=== PATIENT | male | born 1960 | race Caucasian/White ===

== ENCOUNTER 2018-08-27 00:09 | Day surgery (SDC) | payer OTHER ==
[~2018-08-27 00:09] MED LIST: ALBU90OI6 INH; ATOR40TA PO; CEPH500 PO; LEFL20 PO; LISI20 PO
== END 2018-08-27 23:10 | disposition home or self-care (01) ==
LOC: WOUND 00:09
DX: L03.116 Cellulitis of left lower limb (principal); R23.4 Changes in skin texture; I10 Essential (primary) hypertension; J44.9 Chronic obstructive pulmonary disease, unspecified; E78.5 Hyperlipidemia, unspecified; M19.90 Unspecified osteoarthritis, unspecified site; Z88.1 Allergy status to other antibiotic agents; Z87.891 Personal history of nicotine dependence
CPT/HCPCS: G0463

== ENCOUNTER 2018-09-04 10:25 | Day surgery (SDC) | payer OTHER | END 2018-09-04 22:55 | disposition home or self-care (01) | LOC: WOUND 10:25 | DX: R23.4 Changes in skin texture (principal); J44.9 Chronic obstructive pulmonary disease, unspecified; I10 Essential (primary) hypertension; E78.5 Hyperlipidemia, unspecified; M06.9 Rheumatoid arthritis, unspecified; F17.200 Nicotine dependence, unspecified, uncomplicated; M19.90 Unspecified osteoarthritis, unspecified site | CPT/HCPCS: G0463 ==

== ENCOUNTER 2018-09-11 10:15 | Day surgery (SDC) | payer OTHER | END 2018-09-11 22:51 | disposition home or self-care (01) | LOC: WOUND 10:15 | DX: R23.4 Changes in skin texture (principal); J44.9 Chronic obstructive pulmonary disease, unspecified; M06.9 Rheumatoid arthritis, unspecified; E78.5 Hyperlipidemia, unspecified; I10 Essential (primary) hypertension; F17.200 Nicotine dependence, unspecified, uncomplicated; M19.90 Unspecified osteoarthritis, unspecified site | CPT/HCPCS: G0463 ==

== ENCOUNTER 2018-09-18 10:12 | Day surgery (SDC) | payer OTHER | END 2018-09-18 22:42 | disposition home or self-care (01) | LOC: WOUND 10:12 | DX: S81.802A Unspecified open wound, left lower leg, initial encounter (principal); R23.4 Changes in skin texture; I10 Essential (primary) hypertension; J44.9 Chronic obstructive pulmonary disease, unspecified; E78.5 Hyperlipidemia, unspecified; F17.200 Nicotine dependence, unspecified, uncomplicated | CPT/HCPCS: G0463 ==

== ENCOUNTER 2018-09-25 10:15 | Day surgery (SDC) | payer OTHER | END 2018-09-25 22:50 | disposition home or self-care (01) | LOC: WOUND 10:15 | DX: R23.4 Changes in skin texture (principal); J44.9 Chronic obstructive pulmonary disease, unspecified; E78.5 Hyperlipidemia, unspecified; I10 Essential (primary) hypertension; M06.9 Rheumatoid arthritis, unspecified; F17.200 Nicotine dependence, unspecified, uncomplicated | CPT/HCPCS: G0463 ==

== ENCOUNTER → 2022-03-07 | Outpatient (CLI) | payer OTHER | END | disposition home or self-care (01) | LOC: LAB SHORT 11:40 → LAB 11:40 | PROVIDERS: Physician Assistant Medical | DX: E78.2 Mixed hyperlipidemia (principal); E11.42 Type 2 diabetes mellitus with diabetic polyneuropathy | CPT/HCPCS: 82043; 82570 ==

== ENCOUNTER → 2024-03-27 | Outpatient (CLI) | payer OTHER ==
[2024-03-27 12:58] LABS: Microalb/Creat Ratio UR, Rand 176.786 mg/g (0.000-30.000)
== END | disposition home or self-care (01) ==
LOC: LAB SHORT 09:40 → LAB 09:40
PROVIDERS: Physician Assistant Medical
DX: E11.42 Type 2 diabetes mellitus with diabetic polyneuropathy (principal); E11.69 Type 2 diabetes mellitus with other specified complication; E78.2 Mixed hyperlipidemia
CPT/HCPCS: 82043; 82570

== ENCOUNTER 2025-03-26 17:43 | Inpatient (IN) | payer OTHER ==
[~2025-03-26] VITALS: Ht 172.7 cm; Wt 95.2 kg
[~2025-03-26 17:43] MED LIST changes: -ALBU90OI6 INH; +ALBU90OI61 INH
[2025-03-26 18:33] LABS: BASOPHILS ABSOLUTE AUTO 0.06 K/mm3 (0.00-0.23); BASOPHILS PERCENT AUTO 1 % (0-2); EOSINOPHILS ABSOLUTE AUTO 0.34 K/mm3 (0.00-0.68); EOSINOPHILS PERCENT AUTO 4 % (0-6); Hematocrit 37.6 % (37.0-53.0); Hemoglobin 12.2 g/dL (13.5-17.5); IMMATURE GRAN ABSOLUTE AUTO 0.04 K/mm3 (0.00-0.10); IMMATURE GRAN PERCENT AUTO 0 % (0-1); LYMPHOCYTES ABSOLUTE AUTO 2.20 K/mm3 (0.84-5.20); LYMPHOCYTES PERCENT AUTO 24 % (21-46); MONOCYTES ABSOLUTE AUTO 0.60 K/mm3 (0.16-1.47); MONOCYTES PERCENT AUTO 7 % (4-13); Mean Corpuscular HGB Conc 32.4 g/dL (31.5-36.5); Mean Corpuscular Volume 97 fL (80-100); NEUTROPHILS ABSOLUTE AUTO 5.79 K/mm3 (1.96-9.15); NEUTROPHILS PERCENT AUTO 64 % (41-73); NRBC ABSOLUTE 0.00 K/mm3 (0.00-0.02); NRBC Auto 0.0 /100 WBC (0.0-0.2); Platelet Count 253 K/mm3 (150-400); RDW Coefficient Variation 12.9 % (11.7-14.2); RDW Standard Deviation 45.6 fL (35.1-46.3)
[2025-03-26 18:57] LABS: Alanine Aminotransfer (ALT/SGP 35.0 U/L (12-78); Albumin, Blood 3.4 g/dL (3.4-5.0); Albumin/Globulin Ratio 0.8 (0.8-1.8); Anion Gap 7.0 mmol/L (3-11); Aspartate Aminotrans (AST/SGOT 17.0 U/L (12-37); Bilirubin, Total 0.2 mg/dL (0.1-1.0); Blood Urea Nitrogen 12.0 mg/dL (8-24); CO2, Blood 31.0 mmol/L (21-32); Calcium, Blood 9.6 mg/dL (8.5-10.1); Chloride, Blood 100.0 mmol/L (98-108); Creatinine, Blood 0.67 mg/dL (0.60-1.20); Globulin, Blood 4.3 g/dL (2.2-4.0); Glucose, Blood 202.0 mg/dL (70-99); Potassium, Blood 4.3 mmol/L (3.5-5.5); Sodium, Blood 134.0 mmol/L (136-145); Total Protein, Blood 7.7 g/dL (6.4-8.2)
[2025-03-26] MEDS ORDERED: ATEN100 PO (21:07)
[2025-03-26] MEDS ORDERED: ATOR40TA PO (21:08)
[2025-03-26] MEDS ORDERED: LEFLUNOMIDE20 M2 PO (21:08)
[2025-03-26] MEDS ORDERED: AMLODIPINE BESYL5 MG PO (21:09)
[2025-03-26] MEDS ORDERED: Ipratropium/Albuterol SulF 2.5-0.5MG/3 ML Amp INH ONE (22:10)
[2025-03-26] MEDS ORDERED: Albuterol 2.5 MG/3 ML VIAL INH SCH ×2 (22:10→23:55)
[2025-03-26] MEDS ORDERED: Diltiazem HCl 5 MG / ML 5ML Vial IV ONE (22:10)
[2025-03-26 22:24] LABS: Magnesium, Blood 1.8 mg/dL (1.6-2.4)
[2025-03-27] VITALS (12 sets, daily range): BP systolic 105–141; BP diastolic 66–95
[2025-03-27] MEDS ORDERED: Ondansetron HCl 2 MG / ML 2ML Vial IV PRN (00:45)
[2025-03-27] MEDS ORDERED: FLU VACC TS2025-26(6MOS UP)/PF 45 MCG/0.5 ML SYRINGE IM SCH (00:50)
[2025-03-27] MEDS ORDERED: Magnesium Sulf 2 GM/Water 50ML 50 ML IV ONE (01:05)
[2025-03-27] MEDS ORDERED: EPINEPHRIN0.3 MG/0.1 IM (02:14)
[2025-03-27] MEDS ORDERED: FLUTICASONE-SA1 EAC9 INH (02:14)
[2025-03-27] MEDS ORDERED: ATEN100 PO (02:22)
[2025-03-27] MEDS ORDERED: ASPI325 PO (02:24)
--- NOTE | 2025-03-27 02:33 | NUR ---
ARRIVAL TO PCU NOTE: RECEIVED REPORT FROM [employer] SUPERVISOR P[employer] ANAND PT SHORTLY ARRIVED TO PCU AT 0044. TRANSFERRED FROM ER [facility] TO PCU BED VIA SBA. A/Ox4 AND COOPERATIVE WITH CARE. ANSWERS QUESTIONS APPROPRIATELY AND ABLE TO MAKE IS NEEDS KNOWN. CARDIAC, TELE SHOWS AFIB 100-120'S WITH NO REPORTS OF CP, PRESSURE OR PALPITATIONS. CARDIZEM gtt INFUSING IN RAC IV. SBP STABLE IN THE 100-130'S. RESPIRATORY, MAINTAINING SPO2 >90% ON 3L NS. LS DIMINISHED WITH SOME WHEEZES NOTED. MILD DYSPNEA WITH EXERTION NOTED. GI/, ABLE TO AMBULATE TO BATHROOM VIA SBA VOIDING CLEAR YELLOW URINE. DENIES ABD PAIN OR N/V/D AT THIS TIME. SKIN OVERALL C/D/I. WILL CONTINUE TO PROCESS MD ORDERS. UMA MONTOYA, AT THIS TIME
[2025-03-27 03:27] LABS: Influenza A/2009-H1 Not Detected (NOT DETECT); SARS-Cov-2 (COVID-19), BioFire Not Detected (NOT DETECT)
--- NOTE | 2025-03-27 05:17 | NUR ---
SHIFT SUMMARY NO ACUTE CHANGES SINCE ARRIVAL TO PCU NOTE. SEE NOTE FOR DETAILS. REMAINS ON CARDIZEM gtt WITH NO COMPLAINTS OF CP OR PALPITATIONS. MAINTAINS SPO2 >90% ON 3L NC. NO NEW ORDERS AT THIS TIME, WILL GIVE REPORT TO ONCOMING RN. JAN EATON OF THIS NOTE
[2025-03-27] MEDS ORDERED: MULVITA PO (05:57)
[2025-03-27] MEDS ORDERED: Albuterol HFA200 ACT/6.7 GM INH INH PRN (06:40)
[2025-03-27] MEDS ORDERED: Formoterol/Mometasone MDI 5/200 mcg 13 GM INH SCH (06:40)
[2025-03-27 07:26] LABS: Hematocrit 35.4 % (37.0-53.0); Hemoglobin 11.8 g/dL (13.5-17.5); Mean Corpuscular HGB Conc 33.3 g/dL (31.5-36.5); Mean Corpuscular Volume 96 fL (80-100); NRBC ABSOLUTE 0.00 K/mm3 (0.00-0.02); NRBC Auto 0.0 /100 WBC (0.0-0.2); Platelet Count 272 K/mm3 (150-400); RDW Coefficient Variation 12.9 % (11.7-14.2); RDW Standard Deviation 45.9 fL (35.1-46.3)
--- NOTE | 2025-03-27 07:33 | NUR ---
AM NOTE ASSUMED CARE AT APPROX 0700. PT ALERT, ORIENTED X4; CALM AND COOPERATIVE WITH CARE. PT RESTING IN BED. UP WITH SBA. PT DENIES PAIN, CHEST PAIN/PRESSURE, SOB, NAUSEA, DIZZINESS AND NUMB/TINGLING AT THIS TIME. SPO2 >90% ON 3L O2 VIA NC, BASELINE O2, PT REPORTS FEELING CONGESTED. TELE AFIB 80-90'S, ON CARDIZEM GTT AT 5MG/HR, BP STABLE. ABD SOFT, NONTENDER, +BT. NO EDEMA NOTED. OTHER VSS. CALL LIGHT WITH IN REACH.
[2025-03-27 07:42] LABS: Alanine Aminotransfer (ALT/SGP 32.0 U/L (12-78); Albumin, Blood 3.3 g/dL (3.4-5.0); Albumin/Globulin Ratio 0.8 (0.8-1.8); Anion Gap 4.0 mmol/L (3-11); Aspartate Aminotrans (AST/SGOT 13.0 U/L (12-37); Bilirubin, Total 0.3 mg/dL (0.1-1.0); Blood Urea Nitrogen 12.0 mg/dL (8-24); CO2, Blood 35.0 mmol/L (21-32); Calcium, Blood 9.0 mg/dL (8.5-10.1); Chloride, Blood 100.0 mmol/L (98-108); Creatinine, Blood 0.53 mg/dL (0.60-1.20); Globulin, Blood 4.1 g/dL (2.2-4.0); Glucose, Blood 259.0 mg/dL (70-99); Potassium, Blood 4.3 mmol/L (3.5-5.5); Sodium, Blood 135.0 mmol/L (136-145); Total Protein, Blood 7.4 g/dL (6.4-8.2)
[2025-03-27 07:53] LABS: BAND PERCENT MAN 14 % (0-8); BASOPHILS ABSOLUTE MAN 0.00 K/mm3 (0.00-0.23); BASOPHILS PERCENT MAN 0 % (0-2); EOSINOPHILS ABSOLUTE MAN 0.00 K/mm3 (0.00-0.68); EOSINOPHILS PERCENT MAN 0 % (0-6); LYMPHOCYTES ABSOLUTE MAN 0.95 K/mm3 (0.84-5.20); LYMPHOCYTES PERCENT MAN 12 % (21-46); MONOCYTES ABSOLUTE MAN 0.00 K/mm3 (0.16-1.47); MONOCYTES PERCENT MAN 0 % (4-13); NEUTROPHILS ABSOLUTE MAN 7.00 K/mm3 (1.96-9.15); SEG NEUTROPHILS PERCENT MAN 74 % (41-73)
[2025-03-27] MEDS ORDERED: Enoxaparin 40 MG/0.4 ML SYR SC SCH (09:00)
[2025-03-27] MEDS ORDERED: Diltiazem HCl 180 MG Cap.CD PO SCH (10:15)
[2025-03-27] MEDS ORDERED: PRED20 PO (11:38)
[2025-03-27] MEDS ORDERED: DOXY100 PO (11:38)
[2025-03-27] MEDS ORDERED: DILT180 PO (11:38)
[2025-03-27] MEDS ORDERED: XARELTO20 MG PO (11:38)
[2025-03-27] MEDS ORDERED: METF500 PO (13:28)
[2025-03-27] MEDS ORDERED: Insulin Human Lispro 100 Units/ML 3ML Syringe SC ONE (13:45)
--- NOTE | 2025-03-27 14:00 | NUR ---
CARDIZEM TURNED OFF AT APPROX 11 AM, HEART CONTROLLED 60-90'S, MINIMAL INCREASE WITH AMBULATION. BP STABLE. OTHER VSS. PLANS FOR DISCHARGE THIS AFTERNOON. DISCUSSED ELEVATED BLOOD GLUCOSE WITH MD, PLANS FOR ONE DOES OF INSULIN AND STILL OK TO SEND HOME. NO OTHER ACUTE CHANGES NOTED.
--- NOTE | 2025-03-27 16:40 | NUR ---
DISCHARGE SUMMARY: PT EDUCATED ON DISCHARGE INSTRUCTIONS: MEDICATIONS, DIAGNOSIS, AND FOLLOW UP APPOINTMENTS. PT VERBALIZED UNDERSTANDING OF ALL. 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 PT LEFT UNIT ON 3L O2 IN WC WITH ALL BELONGINGS WITHOUT INCIDENT AT APPROX 1545. PT SPOUSE PICKED UP.
[2025-03-28] MEDS ORDERED: Diltiazem HCl 180 MG Cap.CD PO SCH (09:00)
== END 2025-03-27 16:13 | disposition home or self-care (01) | DRG 191 ==
LOC: ER 17:43 → PCU 03-27 00:02
PROVIDERS: Student in an Organized Health Care Education/Training Program; ADMIT Internal Medicine
DX: J44.1 Chronic obstructive pulmonary disease with (acute) exacerbation (principal); J96.11 Chronic respiratory failure with hypoxia; I48.91 Unspecified atrial fibrillation; I10 Essential (primary) hypertension; J20.9 Acute bronchitis, unspecified; J44.0 Chronic obstructive pulmonary disease with (acute) lower respiratory infection; E78.5 Hyperlipidemia, unspecified; R73.9 Hyperglycemia, unspecified; Z99.81 Dependence on supplemental oxygen; Z88.8 Allergy status to other drugs, medicaments and biological substances; Z79.899 Other long term (current) drug therapy; Z88.2 Allergy status to sulfonamides; Z79.51 Long term (current) use of inhaled steroids; Z79.82 Long term (current) use of aspirin; Z98.890 Other specified postprocedural states; Z87.891 Personal history of nicotine dependence
CPT/HCPCS: 0202U; 36415; 71046; 80053; 82947; 83690; 83735; 83880; 84484; 85025; 93005; 93010; 94640; 94664; 94762; 96365; 96367; 96374-59; 99285-25; A9270; C8929; J0456; J1815; J2919; J3475; J7050; Q9957